=== PATIENT | female | born 1975 | race Two or more races ===

== ENCOUNTER 2024-02-07 21:52 | Emergency (ER) | payer SELFPAY ==
[~2024-02-07] VITALS: Ht 160 cm; Wt 86.4 kg
[2024-02-07] MEDS: HYDROcodone-ACET 5/325MG TAB PO ONE (22:24)
[2024-02-08 01:18] VITALS: BP 152/75; PULSE 66; RESP 18; TEMP 97.8; O2SAT 97
== END 2024-02-08 01:19 | disposition home or self-care (01) ==
LOC: ER 21:52
DX: S82.52XA Displaced fracture of medial malleolus of left tibia, initial encounter for closed fracture (principal); I11.0 Hypertensive heart disease with heart failure; I50.9 Heart failure, unspecified; X50.1XXA Overexertion from prolonged static or awkward postures, initial encounter; Y93.41 Activity, dancing; Y92.89 Other specified places as the place of occurrence of the external cause; Y99.8 Other external cause status
CPT/HCPCS: 29515; 73610